=== PATIENT | male | born 1970 | race Caucasian/White ===

== ENCOUNTER 2021-10-15 05:10 | Emergency (ER) | payer MEDICAID, SELFPAY ==
[2021-10-15] MEDS ORDERED: Tetracaine 0.5% PF 4 ML BOT ONE (05:13)
[2021-10-15] MEDS ORDERED: Fluorescein Opthalmic Strip ONE (05:13)
[2021-10-15] MEDS ORDERED: Erythromycin Base 0.5% Ophth Oint 3.5 gm Tube ONE (05:25)
[2021-10-15] MEDS ORDERED: Ketorolac Tromethamine 60 MG/2 ML VIAL ONE (05:40)
== END 2021-10-15 05:51 | disposition home or self-care (01) ==
LOC: MADERS 05:10
DX: H16.133 Photokeratitis, bilateral (principal)
CPT/HCPCS: 96372; 99283; J1885

== ENCOUNTER 2023-07-15 17:09 | Emergency (ER) | payer SELFPAY ==
[2023-07-15] MEDS ORDERED: Lidocaine 1% PF 5 ML VIAL ONE (17:28)
[2023-07-15] MEDS ORDERED: Ketorolac Tromethamine 30 MG (1 mL) VIAL ONE (17:58)
== END 2023-07-15 18:05 | disposition home or self-care (01) ==
LOC: MADERS 17:09
DX: M27.3 Alveolitis of jaws (principal); K03.81 Cracked tooth; K02.9 Dental caries, unspecified
CPT/HCPCS: 96372; 99282; J1885

== ENCOUNTER 2023-10-27 21:42 | Emergency (ER) | payer SELFPAY ==
[2023-10-27] MEDS ORDERED: Sodium Chloride 0.9% 1,000 ML ONE (22:44)
[2023-10-27] MEDS ORDERED: Ketorolac Tromethamine 30 MG (1 mL) VIAL ONE (22:44)
[2023-10-27] MEDS ORDERED: Tamsulosin HCl 0.4 MG CAP ONE (22:44)
[2023-10-27 23:04] LABS: #Basophils 0.1 thou/uL (0.0-0.2); #Lymphocytes 0.8 thou/uL (1.20-3.40); #Monocytes 0.4 thou/uL (0.11-0.59); #Neutrophils 9.9 thou/uL (1.40-6.50); %Basophils 0.5 % (0.0-1.0); %Eosinophils 0.2 % (0.0-10.0); %Monocytes 3.9 % (0.0-10.0); %Neutrophils 88.4 % (42.0-75.0); Hematocrit 38.8 % (42.0-52.0); Hemoglobin 12.2 g/dL (14.0-18.0); Mean Corpuscular HGB CONC 31.4 g/dL (32.0-36.0); Mean Corpuscular Hemoglobin 31.5 pg (27.0-31.0); Mean Corpuscular Volume 100.3 fl (78.0-98.0); Mean Platelet Volume 7.2 fL (7.4-10.4); Platelet Count 229 10x3/uL (130-400); RBC Distribution Width 12.8 % (11.5-14.5); Red Blood Cell (RBC) Count 3.87 mill/uL (4.70-6.10); White Blood Cell (WBC) Count 11.2 10x3/uL (4.8-10.8)
[2023-10-27 23:24] LABS: ALT (SGPT) 11 U/L (8-55); AST (SGOT) 16 U/L (5-34); Albumin 3.9 g/dL (3.5-5.0); Alkaline Phosphatase 96 U/L (40-110); Anion Gap 16 mmol/L (10-20); BUN (Urea Nitrogen) 23 mg/dL (8.4-25.7); Bilirubin, Total 0.4 mg/dL (0.2-1.2); Calc. Creatinine Clearance 0 mL/min (70-130); Calcium 10.4 mg/dL (7.8-10.44); Carbon Dioxide 22 mmol/L (22-29); Chloride 109 mmol/L (98-107); Estimated GFR 37; Globulin 2.9 g/dL (2.4-3.5); Glucose 163 mg/dL (70-105); Potassium 4.1 mmol/L (3.5-5.1); Protein, Total 6.8 g/dL (6.0-8.3); Sodium 143 mmol/L (136-145)
[2023-10-28 00:02] LABS: Bilirubin Negative (Negative); Blood, Urine Large (Negative); Glucose, Urine (Dipstick) Negative (Negative); Ketone, Urine Trace mg/dL (Negative); Leukocyte Negative (Negative); Nitrite Negative (Negative); Protein, Urine (Dipstick) 100 mg/dL (Neg-Trace)
[2023-10-28 00:06] LABS: Specific Gravity, Urine 1.026 (1.002-1.036)
[2023-10-28 00:07] LABS: Bacteria/HPF 2+ HPF (None Seen); CAUTI Indications for Culture Acute Hematuria; Clarity Cloudy (Clear); RBC/HPF Greater than 50 HPF (0-3); Sperm/HPF Rare HPF (None Seen); Squamous Epithelial 0-3 HPF (0-3); WBC/HPF None Seen HPF (0-3)
[2023-10-28 00:08] LABS: Urine Culture Reflex No No
== END 2023-10-28 01:56 | disposition home or self-care (01) ==
LOC: MADERS 21:42
DX: N20.0 Calculus of kidney (principal); R94.4 Abnormal results of kidney function studies; F17.200 Nicotine dependence, unspecified, uncomplicated
CPT/HCPCS: 74176; 80053; 81001; 85025; 96374; J1885; J7050

== ENCOUNTER 2023-11-02 13:03 | Emergency (ER) | payer OTHER, SELFPAY ==
[2023-11-02 14:35] LABS: Bilirubin Negative (Negative); Blood, Urine Large (Negative); Glucose, Urine (Dipstick) Negative (Negative); Ketone, Urine Negative (Negative); Leukocyte Small (Negative); Nitrite Negative (Negative); Protein, Urine (Dipstick) Trace mg/dL (Neg-Trace)
[2023-11-02 14:39] LABS: Clarity Cloudy (Clear)
[2023-11-02 14:43] LABS: Bacteria/HPF Rare-Few HPF (None Seen); CAUTI Indications for Culture Pelvic or flank pain; Mucous/LPF 1+ LPF (<2+); Squamous Epithelial 0-3 HPF (0-3); Urine Culture Reflex Yes Yes; WBC/HPF Greater Than 50 HPF (0-3)
[2023-11-02] MEDS ORDERED: Ketorolac Tromethamine 10 MG TAB ONE (15:05)
[2023-11-02] MEDS ORDERED: cefTRIAXone (ROCEPHIN) 1 GM VIAL ONE (15:06)
[2023-11-02] MEDS ORDERED: Lidocaine 1% PF 5 ML VIAL ONE (15:06)
== END 2023-11-02 15:49 | disposition home or self-care (01) ==
LOC: MADERS 13:03
DX: N39.0 Urinary tract infection, site not specified (principal); F17.210 Nicotine dependence, cigarettes, uncomplicated
CPT/HCPCS: 74018; 81001; 87086; 96372; J0696